=== PATIENT | female | born 1950 | race African-American/Black ===

== ENCOUNTER 2017-07-06 03:35 | Emergency (ER) | payer OTHER ==
[~2017-07-06] VITALS: Ht 170.2 cm; Wt 79.7 kg
[~2017-07-06 03:35] MED LIST: AMARYL4 MG PO; ASPIRIN325 MG PO; BENTYL10 MG PO; CIPRO500 MG PO; DICYCLOMINE HCL10 MG PO; Ecotrin PO; FLAGYL500 MG PO; FLEXERIL10 MG PO; FLEXERIL5 MG PO; GLUCOPHAGE1000 MG PO; IBUPROFEN800 MG PO; LEVOTHYROXINE88 MCG PO; LIPITOR40 MG PO; LOTREL 5/201 CAPSULE PO; METFORMIN HCL500 MG PO; MOTRIN800 MG PO; PROTONIX40 MG; PROTONIX40 MG PO; Protonix PO; SYNTHROID112 MCG PO; VITAMIN D400 UNIT PO
[2017-07-06] MEDS ORDERED: CHILD ASPIRIN81 M1 PO (04:08)
[2017-07-06] MEDS ORDERED: BENAZEPRIL HCL40 MG PO (04:09)
[2017-07-06] MEDS ORDERED: AMLODIPINE BESY10 MG PO (04:09)
[2017-07-06 04:24] LABS: HEMATOCRIT 30.9 % (36.0-46.0); MCHC 32.7 G/DL (30.0-36.0); MCV 79.6 FL (83-99); MEAN PLAT.VOLUME 10.8 uM^3 (9.5-12.4); PLATELET COUNT 255 K/uL (156-360); RBC DIS.WIDTH-CV 13.4 % (11.8-14.6); RBC DIS.WIDTH-SD 38.1 % (39-53); RED BLOOD COUNT 3.88 M/uL (3.80-5.20); WHITE BLOOD COUNT 9.2 K/uL (4.1-10.2)
[2017-07-06 04:34] LABS: CHLORIDE 104 mEq/L (99-109); POTASSIUM 3.9 mEq/L (3.7-5.4); SODIUM 138 mEq/L (136-147)
[2017-07-06 04:36] LABS: GLUCOSE 150 mg/dL (70-99)
[2017-07-06 04:37] LABS: ANION GAP 13 MEQ/L (2-14)
[2017-07-06 04:38] LABS: TOTAL BILIRUBIN 0.3 mg/dL (0.0-1.0)
[2017-07-06 04:39] LABS: ALKALINE PHOSPHATASE 87 IU/L (3-129)
[2017-07-06 04:40] LABS: GFR ESTIMATE (CALCULATED) 29 mL/min/
[2017-07-06 04:41] LABS: UREA NITROGEN (BUN) 26 mg/dL (9-23)
[2017-07-06 04:43] LABS: LIPASE 74 U/L (1.0-51.0)
[2017-07-06 05:20] VITALS: BP 130/70
== END 2017-07-06 05:39 | disposition home or self-care (01) ==
LOC: EME 03:35
PROVIDERS: Emergency Medicine
DX: S39.011A Strain of muscle, fascia and tendon of abdomen, initial encounter (principal); X50.0XXA Overexertion from strenuous movement or load, initial encounter; Y93.89 Activity, other specified; Y99.0 Civilian activity done for income or pay; K21.9 Gastro-esophageal reflux disease without esophagitis; I10 Essential (primary) hypertension; E78.5 Hyperlipidemia, unspecified; E11.9 Type 2 diabetes mellitus without complications; J45.909 Unspecified asthma, uncomplicated; E05.90 Thyrotoxicosis, unspecified without thyrotoxic crisis or storm; Z79.84 Long term (current) use of oral hypoglycemic drugs; Z79.82 Long term (current) use of aspirin
CPT/HCPCS: 74176; 74177; 80053; 83690; 85027; 99281; 99284